=== PATIENT | male | born 1970 | race Two or more races ===

== ENCOUNTER 2024-06-07 19:33 | Emergency (ER) | payer BC, SELFPAY ==
[2024-06-07 19:35] VITALS: BP 121/72
[2024-06-07 19:54] LABS: % Basophils 0.5 % (0-2); % Eosinophils 2.4 % (0-6); % Immature Granulocytes 0.3 % (0-0.5); % Lymphocytes 12.2 % (20.5-51.1); % Monocytes 8.9 % (1.7-9.3); % Neutrophils 75.7 % (42.2-75.2); Absolute Eosinophils 0.2 10^3/uL (0-0.7); Absolute Lymphocytes 1.1 10^3/uL (1.2-3.4); Absolute Monocytes 0.8 10^3/uL (0.1-0.6); Absolute Neutrophils 6.6 10^3/uL (1.4-6.5); Hematocrit 45.8 % (39.0-52.0); Hemoglobin 15.6 g/dL (13.0-18.0); Mean Corp Hgb Conc. 34.1 g/dL (33.0-37.0); Mean Corpuscular Volume 93.9 fL (80.0-94.0); Mean Platelet Volume 11.3 fL (7.4-10.4); Nucleated Red Blood Cells % 0 % (-); Platelet Count 173 10^3/uL (130-400); Red Blood Cell Count 4.88 10^6/uL (4.70-6.10); Red Cell Dist. Width 13.3 % (11.5-14.5); White Blood Cell Count 8.7 10^3/uL (4.8-10.8)
[2024-06-07 20:07] LABS: COVID-19 Antigen Negative (Negative)
[2024-06-07 20:12] LABS: ALT (SGPT) 40 U/L (0-50); AST (SGOT) 38 U/L (17-59); Albumin 4.7 g/dl (3.5-5.0); Alkaline Phosphatase 101 U/L (38-126); Blood Urea Nitrogen 25 mg/dl (9-20); Calcium 9.1 mg/dl (8.4-10.2); Carbon Dioxide 26 mmol/L (22-30); Chloride 99 mmol/L (98-107); Glucose 161 mg/dl (70-99); Potassium 4.8 mmol/L (3.5-5.1); Sodium 138 mmol/L (135-145); Total Bilirubin 0.5 mg/dl (0.2-1.3); Total Protein 7.4 g/dl (6.3-8.2); eGFR > 60.00
--- NOTE | 2024-06-07 20:54 | ED.GENMED ---
History of Present Illness
General
Chief Complaint: Cold/Flu/URI Symptoms
Source: patient
Time Seen by Provider: 06/07/24 20:57
History of Present Illness
History of Present Illness:
54-year-old male presenting to the emergency department for evaluation of cold and flulike symptoms that began yesterday endorsing a sore throat, cough, otalgia, sinus congestion, body aches and fatigue. Patient also endorses subjective fevers. No
known sick contacts, recent travel or recent antibiotics. Did not take anything for symptoms prior to arrival. Denies any abdominal pain, nausea, vomiting, bowel changes or urinary symptoms.
Past History
Past History
ED Past Medical History: HTN, Hypercholesterolemia and NIDDM
ED Past Surgical History: None
Social History
Tobacco: Non-smoker
Alcohol: None
Drug: None
Personal:
Living: with family
Review of Systems
Review of Systems
All Other Systems: ROS reviewed and negative except as documented in HPI and ROS
Phy Exam
Physical Exam
Physical Exam:
GENERAL: Alert , in no apparent distress
EYE: conjunctiva clear
NECK: Supple, no significant adenopathy.
ENT: o/p clr, mmm. Raspy voice. TMs slightly pink bilateral, no effusions or bulging, uvula midline, airway patent, no tonsillar erythema or edema/exudates
CARDIAC: Regular rate and rhythm
LUNGS: Clear breath sounds bilaterally, no acute respiratory distress, no wheezes/rales/rhonchi
NEUROLOGICAL: Alert and oriented
SKIN: Warm and dry, skin intact.
MUSCULOSKELETAL: well perfused.
PSYCH: Normal and appropriate interaction.
Scores
Heart Failure Risk
Heart Failure Risk Score: Not Applicable
Heart Score for Chest Pain Patients
STEMI patient?: Not applicable
Withdrawal Assessment of Alcohol
Withdrawal Assessment Completed?: Not applicable
Course
Orders/Labs/Results
Orders:
Orders
06/07/24 19:39
Chest [CR Chest - 2 Views ] Urgent
Comment:
Reason For Exam: cough
06/07/24 19:42
CBC/With Diff [Complete Blood Count/With Diff] Urgent
CMP [Comprehensive Metabolic Panel] Urgent
06/07/24 19:43
COVID-19 Antigen Urgent
Source: Nasal Swab
Influenza A+B Rapid Molecular Urgent
PAULO Source: Nasal Swab
Specimen Description:
Abnormal Lab Results
06/07/24
19:42
MCH 32.0 H pg
(27.0-31.0)
MPV 11.3 H fL
(7.4-10.4)
Absolute Neuts (auto) 6.6 H 10^3/uL
(1.4-6.5)
Absolute Lymphs (auto) 1.1 L 10^3/uL
(1.2-3.4)
Absolute Monos (auto) 0.8 H 10^3/uL
(0.1-0.6)
Neutrophils % 75.7 H %
(42.2-75.2)
Lymphocytes % 12.2 L %
(20.5-51.1)
BUN 25 H mg/dl
(9-20)
Glucose 161 H mg/dl
(70-99)
06/07/24 19:42
06/07/24 19:42
Vital Signs
Initial and Last Documented VS:
Initial Vital Signs
Temp Pulse Resp BP Pulse Ox
99.1 F 87 17 121/72 96
06/07/24 19:35 06/07/24 19:35 06/07/24 19:35 06/07/24 19:35 06/07/24 19:35
Last Documented Vital Signs
Temp Pulse Resp BP Pulse Ox
99.1 F 87 17 121/72 96
06/07/24 19:35 06/07/24 19:35 06/07/24 19:35 06/07/24 19:35 06/07/24 19:35
MDM/Problems Addressed
Differential Diagnosis Includes:
COVID, flu, other viral etiology, pneumonia, sinusitis, otitis media/externa
MDM/Problems Addressed:
54-year-old male presenting to the ER for cold and flulike symptoms for 1 day, endorses subjective fevers and cough. Labs, COVID and flu testing were ultimately negative. Chest x-ray was also reviewed which shows no acute abnormalities. At this
time I do suspect patient's symptoms are most likely viral in nature. Discussed supportive care. Return precautions with the patient. He is otherwise stable for discharge home.
*Radiology
Radiology exam reviewed: preliminary read by ED provider (No acute infiltrates or effusions)
*Pulse Oximetry
Patient hypoxic: no
*Critical Care Note
Total Time (30-74mins, 75-104mins- exclusive of procedures): Not Applicable
ED Attending Note
-
Portions of this chart may have been created with voice recognition software.� Occasional wrong word or��sound alike� substitutions may have occurred due to the inherent limitations of voice recognition software.
Discharge Plan
Departure
Patient Disposition: Home (Routine Discharge)
Date of Disposition: 06/07/24
Time of Disposition: 20:54
Patient with high blood pressure during this ER visit?: No
Discharge Problem:
Cough, Sore throat, Otalgia
Instructions: Viral Syndrome (DC)
Prescriptions:
No Action
metformin 500 mg Tablet
1,000 mg PO BID
losartan 25 mg Tablet
50 mg PO DAILY
Stand Alone Forms: Return to Work
Interventions
Interventions:
*Risk Screen - Suicide Last Done: 06/07/24 19:35
*General Assessment Last Done: 06/07/24 19:35
*Neglect/Abuse Screening Last Done: 06/07/24 19:35
ED- Fall Risk Assessment Last Done: 06/07/24 20:54
*ED COVID-19 Vaccine History Last Done: 06/07/24 20:54
ED- Pulmonary Assessment Last Done: 06/07/24 20:54
Discharge Date and Time
Print Language: SAMI
[2024-06-07 20:59] VITALS: BP 107/75
== END 2024-06-07 21:00 | disposition home or self-care (01) ==
LOC: EMR 19:33
PROVIDERS: EMERGENCY PHYSICIAN Student in an Organized Health Care Education/Training Program; FAMILY PHYSICIAN Internal Medicine
DX: R05.9 Cough, unspecified (principal); J02.9 Acute pharyngitis, unspecified; H92.09 Otalgia, unspecified ear; Z11.52 Encounter for screening for COVID-19; E11.9 Type 2 diabetes mellitus without complications; E78.00 Pure hypercholesterolemia, unspecified; I10 Essential (primary) hypertension
CPT/HCPCS: 99283; 71046; 80053; 85025; 87502; 87811